=== PATIENT | female | born 1990 | race Caucasian/White ===

== ENCOUNTER → 2018-01-03 16:43 | Outpatient (CLI) | payer SELFPAY ==
--- NOTE | 2018-01-03 17:11 | US_ITS ---
STUDY: FIRST TRIMESTER OBSTETRICAL ULTRASOUND REASON FOR EXAM: Female, 27 years old. Bleeding. LMP: September 19, 2017. TECHNIQUE: Transabdominal PRIOR ULTRASOUND: None. FINDINGS: There is visualization of a single gestational sac in a normal intrauterine position. The mean sac diameter (MSD) measures 5.65 cm. The gestational sac shape is within normal limits. There is no demonstrated yolk sac. The placenta is non-visualized. A well-defined 2.4 x 3.3 x 3.2 cm fluid-filled structure is seen along the left anterior margin of the gestational sac. A second 7 x 11 x 12 mm low density along the posterior margin of the gestational sac as a typical appearance of a small subchorionic hemorrhage. There is visualization of an embryo with no cardiac activity, consistent with intrauterine demise. The crown-rump length (CRL) measures 4.19 cm, indicating an estimated gestational age (EGA) of 11 weeks, 1 days. The estimated gestation age (EGA) by LMP is 15 weeks, 1 days. The estimated date of delivery (LYLY) by LMP is June 26, 2018. The estimated gestation age (EGA) by US is 11 weeks, 1 days. The estimated date of delivery (LYLY) by US is July 24, 2018. The uterus measures 13.5 x 9.3 x 6.2 cm. There is no demonstrated uterine fibroid. The cervix is closed. The right ovary is not visualized. There is no visualized right adnexal mass or complex lesion. The left ovary is not visualized. There is no visualized left adnexal mass or complex lesion. There is no fluid in the cul de sac. US/OB Limited With Biometrics IMPRESSION: 1. Findings consistent with an intrauterine demise at estimated gestational age of 11 weeks, 1 day. By LMP, the estimated gestational age should be 15 weeks, 1 day. 2. 12 mm subchorionic hemorrhage seen along the posterior margin of the gestational sac. 3. Well-defined 3.3 cm fluid-filled structure along the left anterior margin of the gestational sac could be a second site of subchorionic hemorrhage. Differential would include an amniotic loculation, nonviable twin , a large venous house, or other cystic lesion of the amnion/chorion. 4. The ovaries were not visualized. Electronically Signed: Pradeep Cowan MD at 17:56 EST , Service support ,
== END ==
PROVIDERS: Family Provider Family Medicine; PCP Family Medicine
DX: O20.0 Threatened abortion (principal)
CPT/HCPCS: 76816

== ENCOUNTER 2018-01-09 06:53 | Day surgery (SDC) | payer SELFPAY ==
--- NOTE | 2018-01-09 | POC_PTH ---
PATIENT: RUDDY BARNES LOC: [facility] [place] U#:[id number] AGE/SX: 27/F ROOM: RE01/09/[address]: Dr. Noe Kaye MD : 1990 BED: DIS: 01/09/2018 SPEC #: [id number] RECD: 01/09/18 11:10 STATUS: REN JENNIFER #: [id number] CESAR: 01/09/18 00:[address]: Noe Kaye DEPT: SURGICAL PATHOLOGY RECD BY: George Richardson ENTERED: 01/09/18 11:10 SP TYPE: PROD CONC OTHR DR: Dr. Kwame Geiger, DO Tissues: Product of conception, NOS Procedures: Surgery Specimen Level IV HEADER OPERATION: Dilation and curettage, suction PRE-OP DIAGNOSIS: Missed TISSUE SUBMITTED: Products of conception MICROSCOPIC DIAGNOSIS Products of conception: [place]id[place], immature placental tissue and tissue (products of conception). SJ:sandra 01/10/18 MICROSCOPIC DESCRIPTION Slides are reviewed. GROSS DESCRIPTION Received is two containers labeled with the patient's name and designated POC. The specimen consists of multiple fragments of pink-red soft tissue mixed with immature placental tissue that in aggregate measure 10 x 9 x 3 cm. No tissue is identified. Engagement Mgr sections are submitted in three cassettes. The rest of the specimen is rinsed and saved in a bag to be given to the patient as per protocol. / ARPIT:sandra 01/09/18 TC:5 [facility]: [id number]
[2018-01-09 07:39] VITALS: BP 101/66; PULSE 91; RESP 16; TEMP 37.3; O2SAT 100; BMI 22.9
[2018-01-09 07:39] LABS: Hematocrit 31.8 % (37-47); Hemoglobin 11.4 g/dl (12.0-15.0); Mean Corp Hgb Conc 35.8 g/gl (32-36); Mean Corpuscular Hgb 29.5 pg (27.0-32.0); Mean Corpuscular Volume 82.2 fL (81-99); Mean Platelet Vol. 9.3 fl (6.2-12.0); Platelet Count 143 K/mm3 (150-450); RBC Distribution Width CV 14.8 % (11.6-14.6); RBC Distribution Width SD 44.1 fl (35.1-43.9); Red Blood Count 3.87 M/mm3 (4.2-5.4); White Blood Count 4.9 K/mm3 (4.4-11.0)
[2018-01-09 07:41] LABS: Scan Indicated on CBC? Y/N NO
--- NOTE | 2018-01-09 08:37 | PCM.OP.BLANK ---
Operative Report Date of Procedure: 01/09/18 Pre/Post-op: Inevitable Miscarriage Surgeon: Noe Kaye MD, FACOG Anesthesia: Adriano Cline CRNA Type of anesthesia: MAC Procedure: Suction Dilation and Evacuation Findings: 10 cm EM cavity with POC Indication: 27 Year patient with incomplete AB at 15 weeks gestation with an 11 week IUP without FHTs. Pt has been counseled re RBAs and all questions answered. Procedure: Pt taken to the OR where she was given IV sedation. The patient was prepped and draped in the usual sterile fashion. Anterior cervix grasped and cervix dilated to 12mm. An 11 mm suction curette was inserted into the cervix and all contents removed. Uterus was gently curetted and remaining tissue removed. Pt tolerated the procedure well and was taken to the recovery room in satisfactory condition. Sponge, instruments and needle counts were all correct. There were no apparent complications of the surgery. To Pathology: POC EBL Minimal.
--- NOTE | 2018-01-09 08:39 | PCM.DC.D&C ---
Discharge Diet: No Restrictions Discharge Activity: Return to Normal Activity, May Shower, May Take a Tub Bath Call your doctor if you observe: Fever of 101 or Higher, Inability to urinate, Inability to have a bowel movement, Using more than one pad per hour Allergies/Adverse Reactions: Allergies No Known Allergies Allergy (Verified 01/09/18 06:46) Primary Care Physician: Kwame Geiger [Primary Care Provider] - Please Follow Up With: Noe Kaye MD When: 2-3 weeks
[2018-01-09 09:07] VITALS: BP 101/66; BP 105/70; PULSE 67; RESP 14; TEMP 36.8; O2SAT 98
[2018-01-09 09:15] VITALS: BP 101/66; BP 97/74; PULSE 59; RESP 14; O2SAT 100
[2018-01-09 09:20] VITALS: BP 100/72; BP 101/66; PULSE 61; RESP 14; O2SAT 99
[2018-01-09 09:25] VITALS: BP 101/66; PULSE 58; RESP 14; TEMP 36.4; O2SAT 100
[2018-01-09 10:45] VITALS: BP 101/66
== END 2018-01-09 10:45 | disposition home or self-care (01) ==
LOC: SDC 06:53 → AC 06:54
PROVIDERS: Family Provider Family Medicine; PCP Family Medicine; Visit Provider Obstetrics & Gynecology
PROC: (CPT 59812; principal; 2018-01-09 08:00)
DX: O03.4 Incomplete spontaneous abortion without complication (principal)
CPT/HCPCS: 59812; 36415; 85027; 86850; 86900; 88305; J7120